=== PATIENT | female | born 1990 | race African-American/Black ===

== ENCOUNTER 2021-03-23 16:36 | Emergency (ER) | payer OTHER, MEDICAID ==
[~2021-03-23] VITALS: Ht 162.6 cm; Wt 81.7 kg
[~2021-03-23 16:36] MED LIST: IBUPROFEN 600600 M1 PO; NORCO 5-325 TA1 EAC1 PO; NORFLEX100 MG PO; ONDANSETRON HCL4 M2 PO; PEPCID40 MG PO; PRILOSEC 20 MG20 MG PO; PRILOSEC OTC20 MG PO; ULTRAM 50MG TAB50 MG PO; XANAX 0.5 MG0.5 M1 PO; XANAX1 MG PO
[2021-03-23 17:03] LABS: HEMOGLOBIN 12.3 gm/dL (12.0-15.0); MCH 29.4 pg (26.0-34.0); MCHC 33.3 g/dL (28.0-37.0); MCV 88.5 fL (80.0-100.0); MPV 7.8 fl. (7.2-11.1); NUCLEATED RBCS 0 /100WBC; PLATELET COUNT* 296 thou/uL (150-400); RBC 4.18 mil/uL (4.20-5.00); RDW-CV 13.6 % (10.5-14.5)
[2021-03-23 17:23] LABS: CREATININE 1.2 mg/dL (0.6-1.3); POTASSIUM 3.9 mmol/L (3.5-5.1)
[2021-03-23 17:28] LABS: ALBUMIN 4.1 g/dL (3.4-5.0); TOTAL BILIRUBIN 0.4 mg/dL (<0.1-1.0); TOTAL PROTEIN 8.2 g/dL (6.4-8.2)
[2021-03-23 17:54] LABS: ABSOLUTE EOSINOPHILS 0.2 thou/uL (0.0-0.7); ABSOLUTE LYMPHOCYTES 6.3 thou/uL (0.8-5.3); ABSOLUTE MONOCYTES 0.5 thou/uL (0.0-1.2)
[2021-03-23 17:55] LABS: PLATELET ESTIMATE ADEQUATE
[2021-03-23 18:06] VITALS: BP 129/83
--- NOTE | 2021-03-24 09:05 | EKG ---
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
== END 2021-03-23 18:07 | disposition home or self-care (01) ==
LOC: M.ERS 16:36
PROVIDERS: Family Medicine
DX: R07.89 Other chest pain (principal); R79.89 Other specified abnormal findings of blood chemistry; F41.9 Anxiety disorder, unspecified; K21.9 Gastro-esophageal reflux disease without esophagitis; F31.9 Bipolar disorder, unspecified; Z87.42 Personal history of other diseases of the female genital tract; Z90.89 Acquired absence of other organs; Z79.899 Other long term (current) drug therapy; Z88.8 Allergy status to other drugs, medicaments and biological substances; Z88.2 Allergy status to sulfonamides